=== PATIENT | female | born 1945 | race Caucasian/White ===

== ENCOUNTER 2016-08-16 10:52 | Emergency (ER) | payer OTHER ==
[2016-08-16 11:03] VITALS: BP 148/73; PULSE 84; RESP 16; TEMP 97.9; O2SAT 92
--- NOTE | 2016-08-16 11:33 | EDPHY ---
H & P Stated Complaint: red bump on lateral side of right ankle Time Seen by Provider: 08/16/16 11:16 HPI/ROS: CHIEF COMPLAINT: Leg bump HISTORY OF PRESENT ILLNESS: Patient is a 70-year-old female who comes to the emergency department complaining of a pustule in her left lower leg. She 1st noticed it a week ago and thought that looked like a pimple. She had been working in the garden [employer]. She was seen at the primary care physician's office by PA who stated she could not perform I and D's. The patient then came here. There is small amount of erythema surrounding the pustule. REVIEW OF SYSTEMS: Constitutional: denies: chills, fever, recent illness, recent injury EENTM: denies: blurred vision, double vision, nose congestion Respiratory: denies: cough, shortness of breath Cardiac: denies: chest pain, irregular heart rate, lightheadedness, palpitations Gastrointestinal/Abdominal: denies: abdominal pain, diarrhea, nausea, vomiting, blood streaked stools Genitourinary: denies: dysuria, frequency, hematuria, pain Musculoskeletal: denies: joint pain, muscle pain Skin: See HPI Neurological: denies: headache, numbness, paresthesia, tingling, dizziness, weakness Hematologic/Lymphatic: denies: blood clots, easy bleeding, easy bruising Immunologic/allergic: denies: HIV/AIDS, transplant EXAM: GENERAL: Well-appearing, well-nourished and in no acute distress. HEAD: Atraumatic, normocephalic. EYES: Pupils equal round and reactive to light, extraocular movements intact, sclera anicteric, conjunctiva are normal. ENT: TMs normal, nares patent, oropharynx clear without exudates. Moist mucous membranes. NECK: Normal range of motion, supple without lymphadenopathy or JVD. LUNGS: Breath sounds clear to auscultation bilaterally and equal. No wheezes rales or rhonchi. HEART: Regular rate and rhythm without murmurs, rubs or gallops. ABDOMEN: Soft, nontender, normoactive bowel sounds. No guarding, no rebound. No masses appreciated. BACK: No CVA tenderness, no spinal tenderness, step-offs or deformities EXTREMITIES: Normal range of motion, no pitting or edema. No clubbing or cyanosis. NEUROLOGICAL: Cranial nerves II through XII grossly intact. Normal speech, normal gait. 5/5 strength, normal movement in all extremities, normal sensation PSYCH: Normal mood, normal affect. SKIN: Patient has a small pustule to her right medial lower leg. Minimal surrounding erythema, tenderness. Source: Patient Exam Limitations: No limitations - Medical/Surgical History Hx Asthma: No Hx Chronic Respiratory Disease: No Hx Diabetes: No Hx Cardiac Disease: No Hx Renal Disease: No Hx Cirrhosis: No Hx Alcoholism: No Hx HIV/AIDS: No Hx Splenectomy or Spleen Trauma: No Other PMH: Hypothyroidism - Family History Significant Family History: No pertinent family hx - Social History Smoking Status: Never smoked Alcohol Use: Sober Drug Use: None Constitutional: Initial Vital Signs Temperature (C) 36.6 C 08/16/16 10:54 Heart Rate 84 08/16/16 10:54 Respiratory Rate 16 08/16/16 10:54 Blood Pressure 148/73 H 08/16/16 10:54 O2 Sat (%) 92 08/16/16 10:54 O2 Delivery Mode Room Air Allergies/Adverse Reactions: amoxicillin [Amoxicillin] Allergy (Intermediate, Verified 07/26/10 11:29) Hives Home Medications: Medication Instructions Recorded Lisinopril [Zestril 10 mg (*)] 5 mg PO DAILY 07/19/10 Pravastatin Sodium 40 mg PO DAILY 07/19/10 Aspirin [Aspirin 81mg (*)] 81 mg PO DAILY 09/30/15 Cholecalciferol Vit D3 [Vitamin D3 1,000 units PO DAILY 09/30/15 (*)] Levothyroxine [Synthroid 25 mcg 25 mcg PO DAILY06 09/30/15 (*)] Medical Decision Making Procedures: Procedure: Abscess drainage. The patient's abscess was located on the leg. I obtained verbal consent from the patient to drain the abscess who was informed about the possibility of bleeding and pain. The abscess was incised with 18 gauge needle and small amount of purulent drainage was expressed. The procedure was performed by myself. ED Course/Re-evaluation: The patient's pustule was unroofed and cultures taken. I think that it will heal well without antibiotics. We will await culture results. Patient agrees with this plan. We discussed signs for skin cancer. This does not appear to be skin cancer. She will follow up with her regular physician. She is happy with this and declines further workup or testing at this time. Differential Diagnosis: Partial list of the Differential diagnosis considered include but were not limited to; abscess pustule, and although unlikely based on the history and physical exam, I also considered skin cancer, cellulitis, sepsis. I discussed these differential diagnoses and the plan with the patient as well as the usual and expected course. The patient understands that the diagnosis is provisional and that in medicine we are not always correct and that further workup is often warranted. Usual and customary warnings were given. All of the patient's questions were answered. The patient was instructed to return to the emergency department should the symptoms at all worsen or return, otherwise to followup with the physician as we discussed. Departure - Departure Disposition: Home, Routine, Self-Care Clinical Impression: Abscess Condition: Good Instructions: Abscess (ED) Referrals: Amanda Patel MD [Primary Care Provider] - 2-3 days, if not improved
== END 2016-08-16 11:40 | disposition home or self-care (01) ==
LOC: CED 10:52
PROC: 0H9KXZZ Drainage of Right Lower Leg Skin, External Approach (ICD-10-PCS; principal; 2016-08-16)
DX: L02.415 Cutaneous abscess of right lower limb (principal); Z79.82 Long term (current) use of aspirin

== ENCOUNTER 2016-09-16 16:14 | Emergency (ER) | payer OTHER ==
[2016-09-16 16:32] VITALS: RESP 20
[2016-09-16] MEDS ORDERED: CYCLOBENZAPRINE 10 MG TAB PO ONE (16:38)
[2016-09-16] MEDS ORDERED: KETOROLAC 30 MG/1 ML SDV IM ONE (16:38)
--- NOTE | 2016-09-16 16:42 | EDPHY ---
H & P Time Seen by Provider: 09/16/16 16:24 HPI/ROS: HPI Right-sided back pain. 71-year-old female by private vehicle with her . She reports that yesterday she was looking at a trailer camper. She stepped up some stairs to go into the camper. The stairs were not secured. They gave way and she fell back landing flush on the right side of her back. She complains of right mid back pain. She reports that she did hit her head on apply wood floor but denies headache. She is not on any anticoagulant agents. She has not had any nausea or vomiting. No confusion. She denies any neck pain. She reports the back pain is worse when she tries to stand from a sitting position and she reports that it is exacerbated by turning her head to the right. ROS: Constitutional: No fever, no chills. No weakness. Eyes: No discharge. No changes in vision. ENT: No sore throat. No nasal congestion or rhinorrhea. Respiratory: No cough. No shortness of breath. Cardiac: No chest pain, no palpitations. Gastrointestinal: No abdominal pain, no vomiting, no diarrhea. Genitourinary: No hematuria. No dysuria or increased frequency with urination. Musculoskeletal: As above. No neck pain. No myalgias or arthralgias. Skin: No rashes. No lacerations or abrasions. Neurological: No headache. No focal weakness or altered sensation. Past medical history: Hypothyroidism. Social history: She is and with her . Nonsmoker. No alcohol. Physical Exam: General Appearance: Alert, no distress. This patient is responding to questions appropriately and in full sentences. This patient appears well- hydrated and well-nourished. Head: Normocephalic atraumatic. Face: Facial bones are stable on palpation. Eyes: Pupils equal and round and reactive to light, no pallor or injection. No lid erythema or edema. ENT, Mouth: Mucous membranes moist. Dentition is intact. No malocclusion of the jaw. No tongue lacerations or abrasions. Pharynx is clear. The bilateral nasal canals are clear. No septal hematoma. Respiratory: There are no retractions, lungs are clear to auscultation with good air movement bilaterally. Chest wall is stable to AP and lateral palpation. Cardiovascular: Regular rate and rhythm. No murmur. Neurological: Motor sensory function is intact. Cranial nerves are normal. Cerebellar function intact. Skin: Warm and dry, no rashes. No lacerations, abrasions or contusions. Musculoskeletal: Neck is supple and nontender. The trachea is midline. No midline cervical, thoracic, lumbar or sacral tenderness on palpation. No flank tenderness on palpation. She does have some tenderness on palpation over the right posterior mid rib area below the scapular angle an adjacent to T7 through T10. No associated ecchymosis, erythema, edema, warmth, swelling. No crepitus on palpation or deformity noted on palpation. Extremities are symmetrical, full range of motion. All joints in the bilateral upper and bilateral lower extremities range without pain or impingement. No tenderness on palpation of the long bones in the bilateral upper and bilateral lower extremities. Psychiatric: No agitation. No depression. Database: EKG: Imaging: Right-sided x-ray series with PA chest: No evidence of rib fracture. No acute pulmonary disease process. No pneumothorax. Interpreted by me. Procedures: Emergency department course: Past medical history was reviewed. She has no contraindications to NSAIDs. She has normal renal function on review of her records. She was given 60 mg of IM Toradol and 10 mg of Flexeril prior to being sent for imaging. 5:00 p.m., patient re-evaluated. She is feeling more comfortable after above medications. Results of her x-rays were discussed with her. Repeat neurologic Assessment is nonfocal. She feels comfortable going home and I feel she is safe for discharge. I will prescribe her Flexeril. Follow-up and return to emergency department precautions were reviewed with her. All of her questions were answered. She was discharged in good condition. Differential Diagnosis: The differential diagnosis on this patient includes but is not limited to right posterior rib contusions, occult nondisplaced rib fracture. Pneumothorax, aortic dissection, spinal fracture, traumatic brain injury, other significant traumatic injury unlikely. This represents a partial list of diagnoses considered. These considerations are based on history, physical exam, past history, reassessment and diagnostic testing. Smoking Status: Never smoked Constitutional: Initial Vital Signs Temperature (C) 36.8 C 09/16/16 16:28 Heart Rate 80 09/16/16 16:28 Respiratory Rate 20 09/16/16 16:28 Blood Pressure 138/76 H 09/16/16 16:28 O2 Sat (%) 95 09/16/16 16:28 O2 Delivery Mode Room Air Allergies/Adverse Reactions: amoxicillin [Amoxicillin] Allergy (Intermediate, Verified 07/26/10 11:29) Hives Home Medications: Medication Instructions Recorded Lisinopril [Zestril 10 mg (*)] 5 mg PO DAILY 07/19/10 Pravastatin Sodium 40 mg PO DAILY 07/19/10 Aspirin [Aspirin 81mg (*)] 81 mg PO DAILY 09/30/15 Cholecalciferol Vit D3 [Vitamin D3 1,000 units PO DAILY 09/30/15 (*)] Levothyroxine [Synthroid 25 mcg 25 mcg PO DAILY06 09/30/15 (*)] Cyclobenzaprine [Flexeril 10 MG 10 mg PO TID #9 tab 09/16/16 (*)] Medical Decision Making - Diagnostics Imaging Results: Imaging Impressions Ribs w/Chest X-Ray 09/16/16 16:37 Impression: 1. No evidence of right rib fracture. A BB was placed over the posterior right 10th rib without associated fracture. 2. No active cardiopulmonary disease seen. - Data Points Medications Given: Discontinued Medications Cyclobenzaprine HCl (Flexeril) 10 mg PO EDNOW ONE Stop: 09/16/16 16:39 Last Admin: 09/16/16 16:52 Dose: 10 mg Ketorolac Tromethamine (Toradol) 60 mg IM EDNOW ONE Stop: 09/16/16 16:39 Last Admin: 09/16/16 16:52 Dose: 60 mg Departure - Departure Disposition: Home, Routine, Self-Care Clinical Impression: Contusion of rib on right side, Mid back pain on right side Condition: Good Instructions: Rib Contusion (ED), Back Pain (ED) Additional Instructions: Read and follow provided instructions. Follow-up with your primary care physician in 1-2 days for re-evaluation. Take medication as prescribed only. This medication has sedative properties. Do not drive on this medication. Ibuprofen dosin mg every 6 hours with meals for the next 2 days only. Do not start taking this medication until tomorrow morning. Take only as needed for pain. Return to the emergency department for worsening pain, difficulty breathing, loss of sensation or weakness in her extremities, fever or other serious concerns. Referrals: Amanda Patel MD [Primary Care Provider] - As per Instructions Prescriptions: Cyclobenzaprine [Flexeril 10 MG (*)] 10 mg PO TID #9 tab
[2016-09-16 17:12] VITALS: BP 135/86; PULSE 84; TEMP 98.4; O2SAT 94
== END 2016-09-16 17:23 | disposition home or self-care (01) ==
LOC: CED 16:14
DX: S20.211A Contusion of right front wall of thorax, initial encounter (principal); Z79.82 Long term (current) use of aspirin; W10.8XXA Fall (on) (from) other stairs and steps, initial encounter
CPT/HCPCS: 71101; 96372; 99284; J1885

== ENCOUNTER → 2018-02-07 | Outpatient (CLI) | payer OTHER | LOC: FIMAGING 09:58 | PROVIDERS: ATTEND Family Medicine | DX: Z13.820 Encounter for screening for osteoporosis (principal); M85.89 Other specified disorders of bone density and structure, multiple sites; Z78.0 Asymptomatic menopausal state; Z87.81 Personal history of (healed) traumatic fracture ==

== ENCOUNTER → 2018-02-13 | Outpatient (CLI) | payer OTHER | LOC: BHFA 09:15 | PROVIDERS: ATTEND Nurse Practitioner Adult Health | DX: R06.02 Shortness of breath (principal); E78.5 Hyperlipidemia, unspecified; I10 Essential (primary) hypertension ==

== ENCOUNTER → 2018-05-03 | Outpatient (CLI) | payer OTHER | LOC: BHFA 10:00 | PROVIDERS: ATTEND Internal Medicine Cardiovascular Disease | DX: I10 Essential (primary) hypertension (principal) ==